=== PATIENT | female | born 1990 | race African-American/Black ===

== ENCOUNTER 2024-02-06 12:06 | Emergency (ER) | payer MEDICAID ==
[~2024-02-06] VITALS: Ht 170.2 cm; Wt 150.0 kg
[~2024-02-06 12:06] MED LIST: ALBU5SOL18; ALBU5SOL6; FLUT1DIS; IBUP-1008; LISI20TA31; METF500T; PRED15SO
[2024-02-06] MEDS: METHYLPREDNISOLONE SOD SUCC 125MG/2ML (ACT-O-VIAL) IV STA (12:32)
[2024-02-06] MEDS: ALBUTEROL (0.083%) 2.5MG/3ML NEB HHN STA (13:14)
[2024-02-06] MEDS: IPRATROPIUM BROMIDE (0.02%) 0.5MG/2.5ML NEB HHN STA (13:14)
[2024-02-06 14:20] VITALS: PULSE 88; RESP 20; O2SAT 96
[2024-02-06 15:09] VITALS: PULSE 86; RESP 20; O2SAT 94
[2024-02-06] MEDS: ALBUTEROL (0.083%) 2.5MG/3ML NEB HHN ONE (15:09)
[2024-02-06] MEDS: LISINOPRIL 20MG TABLET PO ONE (17:00)
[2024-02-06] MEDS: NIFEDIPINE 10MG CAPSULE PO ONE (17:32)
[2024-02-06 17:37] LABS: BASOPHILS % 0.3 % (0.0-2.0); HEMATOCRIT. 47.3 % (36.0-48.0); HEMOGLOBIN. 15.4 g/dL (12.0-16.0); LYMPHOCYTES % 7.3 % (20.0-50.0); MEAN CORPUSCULAR HEMOGLOBIN 26.4 pg (28.0-32.0); MEAN CORPUSCULAR HGB CONC 32.6 g/dL (31.0-37.0); MONOCYTES % 1.9 % (2.0-8.0); NEUTROPHILS % 89.5 % (40.0-76.0); PLATELET 163 x1000/uL (130-400); RED BLOOD CELL COUNT 5.84 mill/uL (4.2-5.4); RED CELL DISTRIBUTION WIDTH 15.1 % (11.6-14.6)
[2024-02-06 17:43] LABS: CHLORIDE 108 mEq/L (98-107); POTASSIUM 4.2 mEq/L (3.5-5.1); SODIUM 139 mEq/L (136-145)
[2024-02-06 17:44] LABS: CARBON DIOXIDE 24 mEq/L (21-32)
[2024-02-06 17:45] LABS: CALCIUM 10.3 mg/dL (8.7-10.4)
[2024-02-06 17:49] LABS: GLUCOSE 113 mg/dL (70-105)
[2024-02-06 17:50] LABS: TROPONIN I HIGH SENSITIVITY 15 ng/L (3.0-34); UREA NITROGEN BLOOD 10 mg/dL (9-23)
[2024-02-06 17:51] LABS: ALANINE AMINOTRANSFERASE 61 IU/L (10-49); ALBUMIN 4.7 g/dL (3.2-4.8); ASPARTATE AMINOTRANSFERASE 41 IU/L (<34)
[2024-02-06 17:52] LABS: BILIRUBIN TOTAL 0.6 mg/dL (0.1-1.0); PROTEIN TOTAL 7.6 g/dL (6.0-8.3)
[2024-02-06 18:16] VITALS: TEMP 98.8
[2024-02-06] MEDS ORDERED: MAGNESIUM 2 G PREMIX 50 ML IV ONE (18:30)
[2024-02-06] MEDS ORDERED: ALBUTEROL (0.083%) 2.5MG/3ML NEB HHN ONE (18:30)
[2024-02-06] MEDS ORDERED: IPRATROPIUM/ALBUTEROL 0.5-3(2.5)MG/3ML NEB HHN ONE (20:00)
[2024-02-06] MEDS: MAGNESIUM 2 G PREMIX 50 ML IV NR (21:30)
[2024-02-06 22:50] VITALS: BP 182/102; PULSE 118; RESP 20
== END 2024-02-06 23:42 | disposition short-term general hospital (02) ==
LOC: ER 12:31 → CANBEDREQ 18:57 → ER 23:42
DX: J45.901 Unspecified asthma with (acute) exacerbation (principal); I10 Essential (primary) hypertension; Z88.1 Allergy status to other antibiotic agents; Z88.8 Allergy status to other drugs, medicaments and biological substances; Z88.0 Allergy status to penicillin; Z88.2 Allergy status to sulfonamides; Z98.890 Other specified postprocedural states
CPT/HCPCS: 80053; 81025; 83880; 85025; 84484; 36415; 71045; 94640; 93005; 96365; 96375; 99285; J3475; J2930; Z7610 ×4

== ENCOUNTER 2024-10-24 18:57 | Emergency (ER) | payer MEDICAID ==
[~2024-10-24] VITALS: Ht 177.8 cm; Wt 127.0 kg
[2024-10-24 19:09] VITALS: TEMP 37.1
[2024-10-24 20:56] LABS: BASOPHILS % 0.5 % (0.0-2.0); DIFFERENTIAL COMMENT 0; EOSINOPHILS % 3.3 % (0.0-5.0); HEMATOCRIT. 44.8 % (36.0-48.0); HEMOGLOBIN. 14.4 g/dL (12.0-16.0); LYMPHOCYTES % 13.1 % (20.0-50.0); MEAN CORPUSCULAR HEMOGLOBIN 25.1 pg (28.0-32.0); MEAN CORPUSCULAR VOLUME 78.4 fL (81.0-99.0); MEAN PLATELET VOLUME 8.5 fl (7.4-10.4); MONOCYTES % 5.2 % (2.0-8.0); NEUTROPHILS % 77.9 % (40.0-76.0); PLATELET 235 x1000/uL (130-400); RED BLOOD CELL COUNT 5.72 mill/uL (4.2-5.4); RED CELL DISTRIBUTION WIDTH 14.3 % (11.6-14.6); WHITE BLOOD COUNT 13.2 x1000/uL (4.5-11.0)
[2024-10-24 21:05] LABS: INR 0.9; PROTHROMBIN TIME 10.3 sec (9.6-11.0)
[2024-10-24 21:10] LABS: TROPONIN I HIGH SENSITIVITY 20 ng/L (3.0-34)
[2024-10-24] MEDS: IPRATROPIUM/ALBUTEROL 0.5-3(2.5)MG/3ML NEB HHN ONE (22:56)
[2024-10-24 22:57] VITALS: PULSE 84; RESP 20; O2SAT 98
[2024-10-24 23:22] LABS: CHLORIDE 106 mEq/L (98-107); POTASSIUM 3.8 mEq/L (3.5-5.1); SODIUM 142 mEq/L (136-145)
[2024-10-24 23:23] LABS: CARBON DIOXIDE 20 mEq/L (21-32)
[2024-10-24 23:24] LABS: CALCIUM 10.1 mg/dL (8.7-10.4)
[2024-10-24] MEDS: DEXAMETHASONE 10 MG/ML VIAL PO ONE (23:24)
[2024-10-24 23:28] LABS: GLUCOSE 108 mg/dL (70-105); UREA NITROGEN BLOOD 9 mg/dL (9-23)
[2024-10-24 23:30] LABS: ALANINE AMINOTRANSFERASE 24 IU/L (10-49); ALBUMIN 4.7 g/dL (3.2-4.8); ASPARTATE AMINOTRANSFERASE 24 IU/L (<34)
[2024-10-24 23:31] LABS: BILIRUBIN TOTAL 0.4 mg/dL (0.1-1.0); PROTEIN TOTAL 8.3 g/dL (6.0-8.3)
[2024-10-25 01:46] LABS: TROPONIN I HIGH SENSITIVITY 14 ng/L (3.0-34)
[2024-10-25] MEDS: IPRATROPIUM/ALBUTEROL 0.5-3(2.5)MG/3ML NEB HHN ONE (02:20)
[2024-10-25 02:21] VITALS: PULSE 79; RESP 18; O2SAT 97
[2024-10-25 05:56] VITALS: BP 151/88; PULSE 102; RESP 16; O2SAT 96
== END 2024-10-25 06:19 | disposition short-term general hospital (02) ==
LOC: ER 18:57
DX: R06.02 Shortness of breath (principal); I11.0 Hypertensive heart disease with heart failure; I50.9 Heart failure, unspecified; J45.909 Unspecified asthma, uncomplicated; Z79.51 Long term (current) use of inhaled steroids; Z79.52 Long term (current) use of systemic steroids; Z88.0 Allergy status to penicillin; Z88.1 Allergy status to other antibiotic agents; Z88.2 Allergy status to sulfonamides; Z88.8 Allergy status to other drugs, medicaments and biological substances
CPT/HCPCS: 80053; 83880; 85025; 85610; 84484 ×2; 36415 ×2; 71045; 94640 ×2; 93005; 99285; J1100; Z7610 ×4